=== PATIENT | female | born 1950 | race Caucasian/White ===

== ENCOUNTER 2020-05-12 06:30 | Day surgery (SDC) | payer MEDICARE, MEDICAID ==
[~2020-05-12] VITALS: Ht 160 cm; Wt 70.3 kg
[2020-05-12] MEDS ORDERED: SIMETHICONE 40 MG/0.6 ML ML ONE (07:55)
[2020-05-12] MEDS: MEPERIDINE HCL/PF 100 MG/ML AMP ONE ×2 (08:27→08:29)
[2020-05-12] MEDS: MIDAZOLAM HCL 5 MG/5 ML VIAL ONE ×2 (08:27→08:31)
[2020-05-12] MEDS ORDERED: GLYCOPYRROLATE 0.2 MG/ML VIAL ONE (08:56)
[2020-05-12 09:10] VITALS: BP_SYST 124
== END 2020-05-12 13:05 | disposition home or self-care (01) ==
LOC: SMU 06:30 → SDS 06:30
PROVIDERS: ATTEND Colon & Rectal Surgery
DX: Z12.11 Encounter for screening for malignant neoplasm of colon (principal); D12.0 Benign neoplasm of cecum; D12.5 Benign neoplasm of sigmoid colon; E78.5 Hyperlipidemia, unspecified; Z79.899 Other long term (current) drug therapy
CPT/HCPCS: 36415; 45380; 45385; 87426 ×2; 88305; 99152; 99153; G0378; J2175; J2250; J3490; J7030; 45384